=== PATIENT | male | born 1970 | race Hispanic/Latino ===

== ENCOUNTER 2017-12-27 12:36 | Emergency (ER) | payer SELFPAY | END 2017-12-27 14:00 | disposition home or self-care (01) | LOC: ERS 12:36 | DX: B02.9 Zoster without complications (principal); F32.9 Major depressive disorder, single episode, unspecified; F17.210 Nicotine dependence, cigarettes, uncomplicated | CPT/HCPCS: 99282 ==

== ENCOUNTER 2025-02-13 16:46 | Emergency (ER) | payer SELFPAY ==
[2025-02-13] MEDS ORDERED: HYDROcodone/Acetaminophen 5/325 mg Tablet ONE (17:38)
[2025-02-13] MEDS ORDERED: Orphenadrine Citrate 100 MG ER.TAB ONE (18:13)
[2025-02-13] MEDS ORDERED: Ketorolac Tromethamine 30 MG (1 mL) VIAL ONE (19:49)
== END 2025-02-13 19:58 | disposition home or self-care (01) ==
LOC: ERS 16:46
DX: S13.4XXA Sprain of ligaments of cervical spine, initial encounter (principal); S50.812A Abrasion of left forearm, initial encounter; M54.9 Dorsalgia, unspecified; V43.52XA Car driver injured in collision with other type car in traffic accident, initial encounter
CPT/HCPCS: 70450; 72125; 74177; 96374; J1885